=== PATIENT | male | born 1990 | race Caucasian/White ===

== ENCOUNTER 2022-04-09 08:17 | Outpatient (CLI) | payer BC, SELFPAY ==
[2022-04-09 13:34] LABS: Hematocrit 46.6 % (37.0-53.0); Hemoglobin* 15.4 gm/dL (13.5-17.5); Mean Corpuscular HGB Conc 33 gm/dL (32-36); Mean Corpuscular Hemoglobin 31 pg (26-34); Mean Corpuscular Volume 93 fL (80-100); Platelet Count* 239 K/uL (140-440); Red Blood Count 5.03 m/uL (4.30-5.90); White Blood Count* 4.69 K/uL (4.50-11.00)
[2022-04-09 13:39] LABS: Slide Review Reflex No
[2022-04-09 13:50] LABS: Chloride* 105 mmol/L (96-114); Potassium* 4.4 mmol/L (3.6-5.1); Sodium* 139 mmol/L (135-149)
[2022-04-09 13:52] LABS: Cholesterol* 232 mg/dL (90-199)
[2022-04-09 13:53] LABS: Blood Urea Nitrogen* 16 mg/dL (5-24); Carbon Dioxide* 27 mmol/L (20-32); Creatinine* 0.9 mg/dL (0.5-1.5); Estimated Glomerular Filt Rate 116 ml/min; Glucose* 85 mg/dL (60-115); Triglycerides* 63 mg/dL (40-149)
[2022-04-09 13:54] LABS: Calcium* 9.2 mg/dL (8.4-10.6); HDL Cholesterol* 48 mg/dL (>=40); LDL Cholesterol Calculated 171 mg/dL (<100)
== END 2022-04-09 08:18 | disposition home or self-care (01) ==
PROVIDERS: PCP Family Medicine; Visit Provider Family Medicine
DX: E78.5 Hyperlipidemia, unspecified (principal); R53.83 Other fatigue
CPT/HCPCS: 80048; 80061; 84443; 85027

== ENCOUNTER 2022-11-24 08:02 | Outpatient (CLI) | payer BC, SELFPAY | END 2022-11-24 08:03 | disposition home or self-care (01) | LOC: NFLDREF 08:02 | PROVIDERS: PCP Family Medicine; Visit Provider Registered Nurse | DX: Z31.69 Encounter for other general counseling and advice on procreation (principal) | CPT/HCPCS: 89310; 89398 ==

== ENCOUNTER 2023-07-07 10:24 | Outpatient (CLI) | payer BC, SELFPAY | END 2023-07-07 10:25 | disposition home or self-care (01) | LOC: FBOREF 10:24 | PROVIDERS: PCP Family Medicine; Visit Provider Family Medicine | DX: E78.5 Hyperlipidemia, unspecified (principal) | CPT/HCPCS: 80061 ==

== ENCOUNTER 2024-09-13 07:50 | Outpatient (CLI) | payer BC, SELFPAY | END 2024-09-13 07:51 | disposition home or self-care (01) | PROVIDERS: PCP Family Medicine; Visit Provider Family Medicine | DX: E78.2 Mixed hyperlipidemia (principal) | CPT/HCPCS: 80061 ==